=== PATIENT | male | born 1995 | race Caucasian/White ===

== ENCOUNTER 2016-11-30 01:31 | Emergency (ER) | payer SELFPAY ==
[~2016-11-30] VITALS: Ht 170.2 cm; Wt 70.1 kg
[~2016-11-30 01:31] MED LIST: ANUSOL HC,ANUCO25 MG PR; ATARAX,VISTARIL25 MG PO; FLEXERIL10 MG PO; NAPROSYN500 MG PO; NIX 5% CREAM60 GM TP; PREDNISONE10 MG PO; ZOFRAN4 MG PO
[2016-11-30] MEDS ORDERED: AUGMENTIN875 MG PO (03:28)
[2016-11-30 03:57] VITALS: BP 114/55
== END 2016-11-30 03:58 | disposition home or self-care (01) ==
LOC: EME 01:31
PROC: 0CQ0XZZ Repair Upper Lip, External Approach (ICD-10-PCS; principal; 2016-11-30)
DX: S01.551A Open bite of lip, initial encounter (principal); W54.0XXA Bitten by dog, initial encounter; F17.200 Nicotine dependence, unspecified, uncomplicated
CPT/HCPCS: 99281; 99284

== ENCOUNTER 2017-03-11 15:04 | Emergency (ER) | payer SELFPAY ==
[~2017-03-11] VITALS: Ht 172.7 cm; Wt 75.2 kg
[~2017-03-11 15:04] MED LIST changes: +AUGMENTIN875 MG PO
[2017-03-11] MEDS ORDERED: MOTRIN600 MG PO (15:56)
[2017-03-11] MEDS ORDERED: ERYTHROMYC1 APPLICAT RIGHT EYE (15:56)
[2017-03-11 16:07] VITALS: BP 119/63
== END 2017-03-11 16:17 | disposition home or self-care (01) ==
LOC: EME 15:04
DX: S05.91XA Unspecified injury of right eye and orbit, initial encounter (principal); X58.XXXA Exposure to other specified factors, initial encounter; F17.200 Nicotine dependence, unspecified, uncomplicated
CPT/HCPCS: 99281; 99284